=== PATIENT | female | born 1955 ===

== ENCOUNTER 2021-12-06 11:01 | Outpatient (CLI) | payer OTHER | END 2021-12-06 11:03 | disposition home or self-care (01) | LOC: SONOGRAMA 11:01 | PROVIDERS: ATTEND Pathology Anatomic Pathology & Clinical Pathology | DX: E04.2 Nontoxic multinodular goiter (principal) ==

== ENCOUNTER 2023-05-25 09:05 | Outpatient (CLI) | payer OTHER | END 2023-05-25 09:08 | disposition home or self-care (01) | LOC: SONOGRAMA 09:05 | PROVIDERS: ATTEND Pathology Anatomic Pathology | DX: D34 Benign neoplasm of thyroid gland (principal); R59.0 Localized enlarged lymph nodes ==